=== PATIENT | male | born 1985 | race African-American/Black ===

== ENCOUNTER 2021-02-09 21:03 | Emergency (ER) | payer OTHER ==
[~2021-02-09] VITALS: Ht 172.7 cm; Wt 149.7 kg
[2021-02-09 21:05] VITALS: BP_SYST 148
[2021-02-09] MEDS ORDERED: KETOROLAC TROMETHAMINE 15 MG VIAL IVP ONE (22:30)
[2021-02-09] MEDS ORDERED: MORPHINE 4 MG INJ. 4 MG/ML VIAL IVP ONE (22:30)
[2021-02-09] MEDS ORDERED: ONDANSETRON HCL 4 MG/2 ML VIAL IVP ONE (22:30)
[2021-02-10] MEDS ORDERED: PROCHLORPERAZINE EDISYLATE 10 MG/2 ML VIAL IVP ONE (00:45)
[2021-02-10] MEDS ORDERED: LORazepam 2 MG/ML VIAL IVP ONE (00:45)
[2021-02-10] MEDS ORDERED: HYDR-3917 PO (02:41)
[2021-02-10] MEDS ORDERED: NAPR-686 PO (02:41)
[2021-02-10 03:20] VITALS: BP_SYST 138
== END 2021-02-10 03:20 | disposition home or self-care (01) ==
LOC: SED 21:03
DX: S80.01XA Contusion of right knee, initial encounter (principal); S40.011A Contusion of right shoulder, initial encounter; M25.461 Effusion, right knee; Z79.899 Other long term (current) drug therapy; V06.90XA Pedestrian on foot injured in collision with other nonmotor vehicle, unspecified whether traffic or nontraffic accident, initial encounter; Y93.89 Activity, other specified; Y92.89 Other specified places as the place of occurrence of the external cause; Y99.0 Civilian activity done for income or pay
CPT/HCPCS: 29505; 71045; 72072; 72125; 72131; 73560; 76376; 96374; 96375; 99285; J1885; J2060; J2270; J2405; J0780